=== PATIENT | male | born 1995 | race Caucasian/White ===

== ENCOUNTER 2023-11-30 07:19 | Outpatient (CLI) | payer OTHER ==
--- NOTE | 2023-11-30 14:50 | MRI Report ---
PROCEDURE: Lumbar Spine WO INDICATIONS: BACK PAIN TECHNIQUE: Multiplanar multisequential MRI images of the lumbar spine were obtained without intraven ous contrast. COMPARISON: None. FINDINGS: Alignment and Curvature: There is normal bony alignment. Bone Marrow: Marrow is of normal overall signal. No acute vertebral body compression fractures. No sacral fractures. Spinal Cord: Conus medullaris terminates at the L1 level. Visualized cord demonstrates normal signa l and size. Paraspinal Soft Tissues: Unremarkable perivertebral soft tissues. T12-L1: Mild disc space narrowing and asymmetric right disc bulge without central or foraminal steno sis L1-L2: Normal in appearance. L2-L3: Normal in appearance. L3-L4: Disc height is maintained. Small central protrusion noted. No central or foraminal stenosis L4-L5: Mild disc height loss. High intensity zone in the posterior annulus reflects annular fissure or tear. Mild hypertrophic facet joints. Mild central stenosis. Mild bilateral foraminal stenosis. L5-S1: Disc height loss and posterior disc bulge. Mild central stenosis. Moderate right and left fo raminal stenosis IMPRESSION: Degenerative disc disease and arthropathy in the lower lumbar spine results in moderate foraminal james nosis bilaterally at L5-S1. Probable annular fissure or tear at L5-S1. No significant stenosis Reviewed by: Kapil Russell MD on 11/30/2023 1:49 PM AMBER Approved by: Kapil Russell MD on 11/30/2023 1:49 PM AMBER Station ID: [id number]
== END 2023-11-30 07:20 | disposition home or self-care (01) ==
LOC: DI 07:19
PROVIDERS: ATTEND Physician Assistant Medical
DX: M51.36 Other intervertebral disc degeneration, lumbar region (principal); M48.07 Spinal stenosis, lumbosacral region